=== PATIENT | female | born 1995 | race American Indian/Alaskan Native ===

== ENCOUNTER 2020-10-22 12:28 | Emergency (ER) | payer SELFPAY ==
[2020-10-22 12:39] VITALS: BP 110/75
--- NOTE | 2020-10-22 12:39 | Event Note ---
ED Screening Note Date of service: 10/22/20 Time: 12:39 ED Screening Note: Pt c/o left arm laceration today States cut with a knife Last tetanus 1-1/2 years ago Bleeding controlled This initial assessment/diagnostic orders/clinical plan/treatment(s) is/are subject to change based on patients health status, clinical progression and re- assessment by fellow clinical providers in the ED. Further treatment and workup at subsequent clinical providers discretion. Patient/guardian urged not to elope from the ED as their condition may be serious if not clinically assessed and managed. Initial orders include: Further evaluation in [facility]
== END 2020-10-22 15:33 | disposition left against medical advice (07) ==
LOC: ED 12:28
DX: M25.542 Pain in joints of left hand (principal); Z53.21 Procedure and treatment not carried out due to patient leaving prior to being seen by health care provider

== ENCOUNTER 2020-10-22 18:49 | Emergency (ER) | payer SELFPAY | END 2020-10-22 20:06 | disposition left against medical advice (07) | LOC: ED 18:49 | DX: Z00.8 Encounter for other general examination (principal); Z53.21 Procedure and treatment not carried out due to patient leaving prior to being seen by health care provider ==